=== PATIENT | male | born 1955 | race Caucasian/White ===

== ENCOUNTER 2019-10-07 13:18 | Emergency (ER) | payer MEDICAID, SELFPAY ==
[2019-10-07 13:23] VITALS: BP 141/89; PULSE 84; RESP 16; O2SAT 97
--- NOTE | 2019-10-07 14:07 | ED.GENADUL_ITS ---
Discharge Plan Disposition Patient Disposition: HOME Condition: Stable Discharge Details Chief Complaint: Orthopedic Clinical Impression: Crush injury of right foot, Degenerative joint disease of foot, right, DJD (degenerative joint disease) of knee Primary Care Provider: None,None ED Provider: Eliana Zamudio Home Meds and New Rx's Prescriptions: No Action epinephrine [EpiPen] 0.3 mg/0.3 mL Auto-Injector 0.3 ml IM PRN PRNRF: 0 Discharge Instructions Instructions: Osteoarthritis (ED), Crush Injury (ED) Additional Instructions: Follow up with primary care provider in 3-5 days. Return to ED sooner if any worsening or concerns. Increase oral fluids. Rest, ice, compression, elevation. Wear boot for comfort. Please take Tylenol or Ibuprofen with food every 4-6 hours as needed for pain and swelling. Discharge Data Discharge Date/Time-TO BE ENTERED AT DEPARTURE: 10/07/19 15:45 Medical Decision Making 64-year-old male presents chief complaint of right foot pain after he injury on August 18 and then he will continue to be ambulatory on the leg and fell off approximately 4 feet ladder landing on the soles of his feet on September 06. He continues to have right great toe pain and swelling with walking. Request x- rays. He also has bilateral knee pain which has been chronic. No other significant injuries noted or deformities. He describes pain as aching intermittent which is been going on for approximately 1 month. 1416: X-ray right foot and right knee ordered Tylenol 5 mg p.o. ordered. 1510: EXAM: XR FOOT RT COMPLETE CLINICAL HISTORY: Fall September 06, swelling great toe, r/o fx. TECHNIQUE: 2D digital imaging was performed. COMPARISON: No exams were available for comparison FINDINGS: BONES: No acute fracture is present. No bony destructive lesion is seen. Degenerative changes are seen in the foot particularly at the 1st MTP joint. JOINTS: No dislocation present. SOFT TISSUE: Normal. IMPRESSION: No acute or healing fracture or dislocation EXAM: XR KNEE RT 3V AP,LAT,LACEY CLINICAL HISTORY: Fall, knee pain. TECHNIQUE: 2D digital imaging was performed. COMPARISON: No exams were available for comparison FINDINGS: BONES: No acute fracture is present. No bony destructive lesion is seen. JOINTS: The knee is normally aligned. No joint effusion is seen. SOFT TISSUE: Normal. IMPRESSION: Unremarkable radiographs of the right knee. EXAM: XR KNEE LT 3V AP,LAT,LACEY CLINICAL HISTORY: fall, pain. TECHNIQUE: 2D digital imaging was performed. COMPARISON: CR XR KNEE RT 3V AP,LAT,LACEY from 10/07/2019 FINDINGS: BONES: No acute fracture is present. No bony destructive lesion is seen. JOINTS: The knee is normally aligned. No joint effusion is seen. Mild degenerative changes of the femoral tibial and patellofemoral joint. SOFT TISSUE: Normal. IMPRESSION: No acute abnormality. 1546: Patient up to the nurses station requesting how much longer is going to be. He is requesting Ortho boot, Ortho boot ordered. Discussed osteoarthritis and degenerative changes which patient is adamant that this is not the cause of his pain due to the injury. Discussed at this time with the x-rays there is no evidence of acute or subacute fracture. Discussed home care including rest, ice, compression, elevation and using the boot for comfort, verbalized understanding. Instructed to take Tylenol or ibuprofen as needed for pain and swelling. Patient discharged with instructions to follow-up with PCP. HPI General Mode of arrival: ambulatory . Date/Time Provider Initiated Documentation: 10/07/19 13:35 . Limitations to Documentation: no limitations . Information obtained by: patient . HPI Narrative: 64-year-old male presents chief complaint of right foot pain after he injury on August 18 and then he will continue to be ambulatory on the leg and fell off approximately 4 feet ladder landing on the soles of his feet on September 06. He continues to have right great toe pain and swelling with walking. Request x-rays. He also has bilateral knee pain which has been chronic. No other significant injuries noted or defo rmities. He describes pain as aching intermittent which is been going on for approximately 1 month. Related Data Home Medications Medication Instructions Recorded Confirmed epinephrine [EpiPen] 0.3 ml IM PRN PRN 10/07/19 10/07/19 Allergies Allergy/AdvReac Type Severity Reaction Status Date / Time bee venom protein (honey bee) Allergy Severe anaphylaxis Unverified 10/07/19 13:33 hornet venom Allergy Severe anaphylaxis Unverified 10/07/19 13:33 Penicillins Allergy Severe anaphylaxis Unverified 10/07/19 13:33 animal dander AdvReac Intermediate Unverified 10/07/19 13:33 General Stated Complaint: Orthopedic TEMITOPE: 4 Review of Systems Narrative: Constitutional: Negative for weight loss, alert and oriented, well groomed, normal body habitus, appears comfortable. HEENT: Denies trauma, headaches, blurry vision, nasal discharge, sore throat, trouble swallowing. Chest: Denies chest pain, palpitations, irregular rhythm, hypertension. Respiratory: Denies Shortness of breath, cough, hemoptysis. GI: Denies abdominal pain, nausea, vomiting, diarrhea, constipation. Extremities: Complaining of right foot pain and bilateral knee pain which is chronic. [facility] Social History Smoking/Tobacco Use Status: Former Tobacco Use Alcohol Intake: current Alcohol Intake frequency: holidays/special occasions only Substance use type: does not use Do you feel safe in your relationship?: Yes Additional Social history: stays with friends Exam Narrative Exam Narrative: Constitutional: Alert and oriented x3. Appears stated age. Norm al body habitus. Head: Normocephalic, no trauma. Chest: RRR, Normal S1, S2, distal pulses intact. Resp: Lungs clear to auscultation bilaterally, no wheezes, rales, or rhonchi. Musculoskeletal: Normal gait, 5/5 strength to all four extremities. Patient has right great toe pain at the base, mild amount of swelling noted no obvious deformity, no medial or lateral malleolus tenderness. Patient is ambulatory without difficulty in department. Bilateral knees, no significant swelling erythema or deformity noted, negative Laurie's test. Skin: No suspicious rashes or lesions. Capillary refill less than 2 sec. Course Vital Signs Vital signs: Vital Signs Pulse 84 10/07/19 13:23 Respiratory Rate 16 10/07/19 13:23 Blood Pressure 141/89 H 10/07/19 13:23 Pulse Oximetry 97 10/07/19 13:23 Pulse 84 10/07/19 13:23 Respiratory Rate 16 10/07/19 13:23 Respiratory Effort 10/07/19 13:34 Blood Pressure 141/89 H 10/07/19 13:23 Blood Pressure Position Sitting 10/07/19 13:23 Pulse Oximetry 97 10/07/19 13:23 Oxygen Delivery Method Room Air 10/07/19 13:23 Oxygen Flow Rate 0 10/07/19 13:23 Pain Level 3 10/07/19 13:23 Comment 10/07/19 13:23
[2019-10-07] MEDS: Acetaminophen 500 MG TAB PO (14:10)
--- NOTE | 2019-10-07 14:35 | DI.RAD_ITS ---
EXAM: XR KNEE LT 3V AP,LAT,LACEY CLINICAL HISTORY: fall, pain. TECHNIQUE: 2D digital imaging was performed. COMPARISON: CR XR KNEE RT 3V AP,LAT,LACEY from 10/07/2019 FINDINGS: BONES: No acute fracture is present. No bony destructive lesion is seen. JOINTS: The knee is normally aligned. No joint effusion is seen. Mild degenerative changes of the fem oral tibial and patellofemoral joint. SOFT TISSUE: Normal. IMPRESSION: No acute abnormality. DATA REPOSITORY: RADIATION DOSE DELIVERED:
--- NOTE | 2019-10-07 14:40 | DI.RAD_ITS ---
EXAM: XR KNEE RT 3V AP,LAT,LACEY CLINICAL HISTORY: Fall, knee pain. TECHNIQUE: 2D digital imaging was performed. COMPARISON: No exams were available for comparison FINDINGS: BONES: No acute fracture is present. No bony destructive lesion is seen. JOINTS: The knee is normally aligned. No joint effusion is seen. SOFT TISSUE: Normal. IMPRESSION: Unremarkable radiographs of the right knee. DATA REPOSITORY: RADIATION DOSE DELIVERED:
--- NOTE | 2019-10-07 14:45 | DI.RAD_ITS ---
EXAM: XR FOOT RT COMPLETE CLINICAL HISTORY: Fall September 06, swelling great toe, r/o fx. TECHNIQUE: 2D digital imaging was performed. COMPARISON: No exams were available for comparison FINDINGS: BONES: No acute fracture is present. No bony destructive lesion is seen. Degenerative changes are se en in the foot particularly at the 1st MTP joint. JOINTS: No dislocation present. SOFT TISSUE: Normal. IMPRESSION: No acute or healing fracture or dislocation. DATA REPOSITORY: RADIATION DOSE DELIVERED:
[2019-10-07 15:46] VITALS: PULSE 80; RESP 16; O2SAT 97
== END 2019-10-07 15:45 | disposition home or self-care (01) ==
PROVIDERS: Emergency Provider Registered Nurse Emergency
DX: S97.81XA Crushing injury of right foot, initial encounter (principal); X58.XXXA Exposure to other specified factors, initial encounter; M79.674 Pain in right toe(s); W11.XXXA Fall on and from ladder, initial encounter; M19.071 Primary osteoarthritis, right ankle and foot; M17.0 Bilateral primary osteoarthritis of knee
CPT/HCPCS: 29515; 73562; 99284; 73630; 99283; L4361

== ENCOUNTER 2024-05-20 09:28 | Emergency (ER) | payer MEDICARE, MEDICAID, SELFPAY ==
[2024-05-20 09:38] VITALS: BP 167/92; PULSE 66; RESP 18; O2SAT 98
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
[2024-05-20 10:23] VITALS: BP 164/85; PULSE 66; RESP 18; TEMP 36.8; O2SAT 98
== END 2024-05-20 10:26 | disposition home or self-care (01) ==
PROVIDERS: Emergency Provider Student in an Organized Health Care Education/Training Program
DX: M25.512 Pain in left shoulder (principal); Z87.891 Personal history of nicotine dependence
CPT/HCPCS: 99283

== ENCOUNTER 2024-11-27 10:36 | Emergency (ER) | payer MEDICARE, MEDICAID, SELFPAY ==
[2024-11-27 10:38] VITALS: BP 163/92; PULSE 86; RESP 16; TEMP 36.8; O2SAT 98
[2024-11-27 11:42] VITALS: BP 135/75; PULSE 87; O2SAT 98
--- NOTE | 2024-11-27 12:26 | DI.RAD_ITS ---
Exam(s) XR SHOULDER LT COMPLETE 2+V EXAM: XR SHOULDER LT COMPLETE 2+V CLINICAL HISTORY: pain, crepitus. TECHNIQUE: 2D digital imaging was performed. COMPARISON: No exams were available for comparison FINDINGS: Five views No evidence of fracture or dislocation or abnormal soft tissue calcifications. Subacromial space is not diminished. No obvious degenerative changes in the glenohumeral joint. Some degenerative changes noted in the AC joint. Clavicle appears unremarkable. Bone density normal. No osseous lesions. IMPRESSION: No acute osseous findings in the shoulder. DATA REPOSITORY: RADIATION DOSE DELIVERED:
--- NOTE | 2024-11-27 12:28 | W.ED.GENAD ---
Discharge Plan Disposition Patient Disposition: Home Condition: Stable Discharge Details Clinical Impression: Chronic left shoulder pain, Angiokeratoma of scrotum Primary Care Provider: None,None ED Provider: Jay Mart Home Meds and New Rx's Prescriptions: Continued epinephrine [EpiPen] 0.3 mg/0.3 mL Auto-Injector 0.3 ml IM PRN PRN Discharge Instructions Instructions: Shoulder Pain ED Additional Instructions: Please follow-up with your primary care physician. Please call for an appointment. It is recommended that you have a screening colonoscopy as soon as possible. Regarding your left shoulder pain. I am concerned about potential rotator cuff injury. Avoid activities that worsen pain. Please be sure to follow-up with orthopedics. Return to the emergency department immediately for any worsening or new concerning symptoms. Referrals: [facility] [Provider Group] HPI General Mode of arrival: ambulatory. Date/Time Provider Initiated Documentation: 11/27/24 10:37. Limitations to Documentation: no limitations. Information obtained by: patient. HPI Narrative: HISTORY OF PRESENT ILLNESS 69-year-old male with shoulder pain and testicular lesion. Approximately 10 months ago, his arm was twisted and hit, causing shoulder pain. Patient was seen at outside hospital and had negative x-rays and months later followed up here in the emergency department and was felt to likely have rotator cuff injury, outpatient follow-up was recommended. Patient notes pain has persisted since that time. Pain is worse with certain movements and he has associated crepitus. Pain is achy with crepitus during movement. Patient also noticed testicular lesions over the past couple of years, described as dark spots Does not shave the area. Has not seen primary care physician for several years. History of knee replacements and hernia repair with double mesh. Reluctant to undergo colonoscopy. PAST SURGICAL HISTORY: - Knee replacements - Hernia repair with double mesh Related Data Home Medications ?Medication ?Instructions ?Recorded ?Confirmed epinephrine 0.3 mg/0.3 mL 0.3 ml IM PRN PRN 10/07/19 11/27/24 injection, auto-injector (EpiPen) Allergies Allergy/AdvReac Type Severity Reaction Status Date / Time bee venom protein (honey bee) Allergy Severe anaphylaxis Unverified 11/27/24 10:42 hornet venom Allergy Severe anaphylaxis Unverified 11/27/24 10:42 Penicillins Allergy Severe anaphylaxis Unverified 11/27/24 10:42 animal dander AdvReac Intermediate Other (See Unverified 11/27/24 10:42 Comment) General Stated Complaint: Orthopedic TEMITOPE: 3 Review of Systems Musculoskeletal Musculoskeletal: Reports as per HPI Course Vital Signs Vital signs: Vital Signs Temperature 36.8 C 11/27/24 10:38 Pulse 86 11/27/24 10:38 Respiratory Rate 16 11/27/24 10:38 Blood Pressure 163/92 H 11/27/24 10:38 Pulse Oximetry 98 11/27/24 10:38 Temperature 36.8 C 11/27/24 10:38 Pulse 87 11/27/24 11:42 Respiratory Rate 16 11/27/24 10:38 Blood Pressure 135/75 11/27/24 11:42 Blood Pressure Mean 95 11/27/24 11:42 Blood Pressure Position Supine 11/27/24 11:42 Pulse Oximetry 98 11/27/24 11:42 Pain Level 5 11/27/24 10:38 Medical Decision Making ASSESSMENT AND PLAN 69-year-old male here with persistent shoulder pain for 9-10 months. Patient has some crepitus on exam with range of motion and is tender anterior lateral shoulder. Patient also with concern for scrotal lesion. Exam consistent with angiokeratomas. Differential Diagnosis: - Calcific tendinitis: Persistent shoulder pain, potential ligament tear. X-ray ordered, orthopedics referral for MRI. - Rotator cuff tear: Persistent shoulder pain, limited range of motion. Physical therapy recommended, orthopedics referral. - Angiokeratoma ED Course: - shoulder X-ray was reviewed and interpreted by me: No fracture. Radiology read pending. Final Assessment: 69-year-old male with persistent shoulder pain, potential calcific tendinitis, x-ray ordered, orthopedics referral planned. Scrotal angiokeratoma's examined, patient advised on management. Clinical Impression: - Calcific tendinitis vs chronic rotator cuff tear - Scrotal angiokeratomas Disposition: - Discharge: Home, follow-up with orthopedics for evaluation and potential MRI. Return precautions for worsening symptoms. - Follow-Up: Orthopedics referral, physical therapy recommended. Recommended follow-up with PCP and recommended screening colonoscopy. Patient Education: Importance of physical therapy for shoulder pain, recommended colonoscopy for early detection of polyps. This document was written with the assistance of MARILIN Monroe. The patient consented to its use. PFSH All Active Problems (Updated 11/27/24 @ 13:41 by Jay Mart MD) Angiokeratoma of scrotum (Acute) Chronic left shoulder pain (Acute) Social History Smoking/Tobacco Use Status: Former Tobacco Use Smoking risk assessment performed?: Yes Alcohol Intake: current Alcohol Intake frequency: holidays/special occasions only Drug use: Never Substance use type: does not use Do you feel safe in your relationship?: Yes Additional Social history: stays with friends
[2024-11-27 13:50] VITALS: BP 161/101; PULSE 83; RESP 18; O2SAT 99
--- NOTE | 2024-11-27 13:53 | DI.VRAD_ITS ---
PROCEDURE INFORMATION: Exam: XR Left Shoulder Exam date and time: 11/27/2024 12:18 PM Age: 69 years old Clinical indication: Pain; Shoulder; Left; Additional info: Pain, crepitus TECHNIQUE: Imaging protocol: Radiologic exam of the left shoulder. Views: 2 or more views. COMPARISON: No relevant prior studies available. FINDINGS: Bones/joints: No acute fracture or malalignment. Mild AC joint degenerative change. Possible mild glenohumeral joint space narrowing. No agressive bone destruction. Soft tissues: Unremarkable. IMPRESSION: 1. No acute findings. 2. If concern for internal derangement, consider MRI correlation. Dictated and Authenticated by: Christa Howe MD. Orderin Barron Thompson MD
== END 2024-11-27 13:50 | disposition home or self-care (01) ==
PROVIDERS: Emergency Provider Student in an Organized Health Care Education/Training Program
DX: M25.512 Pain in left shoulder (principal); D29.4 Benign neoplasm of scrotum; Z87.891 Personal history of nicotine dependence
CPT/HCPCS: 99283; 73030

== ENCOUNTER → 2024-12-08 10:41 | Outpatient (BNVA) | payer MEDICARE, MEDICAID, SELFPAY | PROVIDERS: Visit Provider Student in an Organized Health Care Education/Training Program | DX: M75.102 Unspecified rotator cuff tear or rupture of left shoulder, not specified as traumatic (principal); G89.29 Other chronic pain | CPT/HCPCS: 99213 ==

== ENCOUNTER 2024-12-28 02:19 | Outpatient (CLI) | payer MEDICARE, MEDICAID, SELFPAY ==
--- NOTE | 2024-12-28 07:15 | DI.MRI_ITS ---
Exam(s) MR UPPER JOINT LT WO EXAM: MR UPPER JOINT LT WO CLINICAL HISTORY: L SHOULDER PAIN, CHRONIC L SHOULDER PAIN, ROTATOR CUFF TEAR, M75.512 G89.29. TECHNIQUE: Multiplanar multisequence MRI was performed. COMPARISON: CR,XR XR SHOULDER LT COMPLETE 2+V from 11/27/2024 FINDINGS: BONES: There is no fracture or contusion pattern. JOINTS: There are mild degenerative changes seen at the acromioclavicular joint. There is mild marrow edema seen in the glenoid. No fracture is seen. The glenohumeral joint is normal. TENDONS: Supraspinatus: There is tendinosis of the supraspinatus tendon without evidence of a full-thickness tear. Infraspinatus: There is tendinosis of the infraspinatus tendon without evidence of a tear. Subscapularis: Unremarkable. Teres Minor: Unremarkable. Biceps and [place]: Unremarkable. MUSCLES: There is moderate fatty atrophy of the subscapularis muscle. GLENOID LABRUM: Unremarkable on this noncontrast examination. SOFT TISSUES: Unremarkable. LIGAMENTS: Unremarkable. OTHER: Subacromial and subdeltoid bursae are unremarkable. IMPRESSION: 1. There is no evidence of a rotator cuff tear. 2. There is tendinosis of the supraspinatus and infraspinatus tendons. 3. Moderate fatty atrophy of the subscapularis muscle. 4. Marrow edema seen in the scapula without evidence of a fracture. 5. Mild degenerative changes seen at the acromioclavicular joint. DATA REPOSITORY:
--- NOTE | 2024-12-28 13:45 | DI.RAD_ITS ---
Exam(s) XR ORBITS EXAM: XR ORBITS INDICATION: Z53.09 FB NEAR EYE-PRE MRI. COMPARISON: No exams were available for comparison TECHNIQUE: 2D digital imaging was performed. Three views. FINDINGS: No metallic foreign body. No evidence of fracture IMPRESSION: No evidence of metallic foreign body. DATA REPOSITORY: RADIATION DOSE DELIVERED:
== END 2024-12-28 02:39 ==
LOC: DI 02:19
PROVIDERS: Visit Provider Student in an Organized Health Care Education/Training Program
DX: M75.32 Calcific tendinitis of left shoulder (principal); M25.512 Pain in left shoulder; G89.29 Other chronic pain; Z53.09 Procedure and treatment not carried out because of other contraindication
CPT/HCPCS: 70200; 73221

== ENCOUNTER → 2025-01-05 09:58 | Outpatient (BNVA) | payer MEDICARE, MEDICAID, SELFPAY | PROVIDERS: Visit Provider Student in an Organized Health Care Education/Training Program | DX: M75.102 Unspecified rotator cuff tear or rupture of left shoulder, not specified as traumatic (principal); M19.012 Primary osteoarthritis, left shoulder | CPT/HCPCS: 99213 ==